=== PATIENT | female | born 1985 | race Caucasian/White ===

== ENCOUNTER 2017-03-18 01:01 | Emergency (ER) | payer OTHER ==
[~2017-03-18] VITALS: Ht 162.6 cm; Wt 69.3 kg
[2017-03-18] MEDS ORDERED: PEN-VEE K,VEET500 MG PO (04:14)
[2017-03-18 04:35] VITALS: BP 135/80
[2017-03-18] MEDS ORDERED: NORCO 5/3251 TABLET PO (07:38)
== END 2017-03-18 04:35 | disposition home or self-care (01) ==
LOC: EME 01:01
PROC: 3E0T3BZ Introduction of Anesthetic Agent into Peripheral Nerves and Plexi, Percutaneous Approach (ICD-10-PCS; principal; 2017-03-18)
DX: K08.89 Other specified disorders of teeth and supporting structures (principal); F17.200 Nicotine dependence, unspecified, uncomplicated
CPT/HCPCS: 99281; 99283

== ENCOUNTER 2017-03-18 06:41 | Emergency (ER) | payer OTHER ==
[~2017-03-18] VITALS: Ht 162.6 cm; Wt 69.3 kg
[~2017-03-18 06:41] MED LIST: PEN-VEE K,VEET500 MG PO
[2017-03-18] MEDS ORDERED: NORCO 5/3251 TABLET PO (07:38)
[2017-03-18 07:46] VITALS: BP 141/90
== END 2017-03-18 07:49 | disposition home or self-care (01) ==
LOC: EME 06:41
PROC: 3E0R3BZ Introduction of Anesthetic Agent into Spinal Canal, Percutaneous Approach (ICD-10-PCS; principal; 2017-03-18)
DX: K02.9 Dental caries, unspecified (principal); F17.200 Nicotine dependence, unspecified, uncomplicated
CPT/HCPCS: 99281; 99283